=== PATIENT | female | born 1975 | race Caucasian/White ===

== ENCOUNTER 2017-05-16 13:41 | Emergency (ER) | payer BC ==
[2017-05-16] MEDS ORDERED: Sodium Chloride 0.9% 1,000 ML IV SCH (14:45)
[2017-05-16] MEDS ORDERED: Ketorolac 30 MG/ML SDV IVPUSH ONE (14:46)
[2017-05-16] MEDS ORDERED: Prochlorperazine 10 MG/2 ML SDV IVPUSH ONE (14:46)
[2017-05-16] MEDS ORDERED: diphenhydrAMINE 50 MG/ML SDV IVPUSH ONE (14:47)
--- NOTE | 2017-05-16 16:14 | EDM.PDOC ---
ED HPI GENERAL MEDICAL PROBLEM - General Chief Complaint: Headache Stated Complaint: HEADACHE Time Seen by Provider: 05/16/17 14:00 Source of Information: Reports: Patient History Limitations: Reports: No Limitations - History of Present Illness INITIAL COMMENTS - FREE TEXT/NARRATIVE: pt has been having a problem with a rt shoulder area and she now has a headache. She is not prone to hesdaches that are not relieved by Ibuprofen. She has very little vision in the rt eye due to a detached retina. She has a history of chronic nystagmus. Onset: Today, Gradual Duration: Hour(s):, Getting Worse Location: Reports: Head Associated Symptoms: Reports: No Other Symptoms Headache Pain Score (Numeric/FACES): 9 - Related Data Allergies Allergy/AdvReac Type Severity Reaction Status Date / Time No Known Allergies Allergy Verified 10/18/16 09:39 Home Meds: Home Meds Levalbuterol HCl [Xopenex] 0.63 mg IH ASDIRECTED PRN 05/16/17 [History] Levalbuterol Tartrate [Xopenex HFA] 2 puff IH ASDIRECTED PRN 05/16/17 [History] Montelukast [Singulair] 10 mg PO ONETIME 05/16/17 [History] lamoTRIgine [Lamictal] 200 mg PO DAILY 05/16/17 [History] risperiDONE [risperiDONE] 1.5 mg PO DAILY 05/16/17 [History] Past Medical History HEENT History: Reports: Impaired Vision Other HEENT History: left eye Respiratory History: Reports: Asthma CIT[employer]X ARCHITECT History: Reports: Endometriosis Musculoskeletal History: Reports: Other (See Below) Other Musculoskeletal History: right shoulder problem. pain left side of neck Psychiatric History: Reports: Bipolar Social & Family History - Tobacco Use Smoking Status *Q: Never Smoker - Caffeine Use Caffeine Use: Reports: Coffee - Recreational Drug Use Recreational Drug Use: No ED ROS GENERAL - Review of Systems Review Of Systems: See Below Constitutional: Reports: No Symptoms HEENT: Reports: Other (no new symptoms. ) Respiratory: Reports: No Symptoms Cardiovascular: Reports: No Symptoms Endocrine: Reports: No Symptoms GI/Abdominal: Reports: No Symptoms : Reports: No Symptoms Musculoskeletal: Reports: No Symptoms Neurological: Reports: Headache, Other (pt has neck tightness) Psychiatric: Reports: No Symptoms - Physical Exam Exam: See Below Text/Narrative:: Pt arrived with a headache accross the entire head. He has sinus infections in the past but she does not have symptoms of that. 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 ) Back Exam: Normal Inspection Extremities: Normal Inspection Psychiatric: Normal Affect Course - Vital Signs Last Recorded V/S: Last Vital Signs Temp 36.6 C 05/16/17 13:58 Pulse 80 05/16/17 18:16 Resp 16 05/16/17 18:16 BP 118/75 05/16/17 18:16 Pulse Ox 97 05/16/17 18:16 - Orders/Labs/Meds Orders: Active Orders 24 hr Category Date Time Status Cervical Spine Min 4V [CR] Stat Exams 05/16/17 17:31 Taken Head wo Cont [CT] Stat Exams 05/16/17 14:47 Taken Labs: Laboratory Tests 05/16/17 05/16/17 05/16/17 Range/Units 14:58 14:58 15:42 WBC 4.5 (4.5-11.0) K/uL RBC 4.44 (3.30-5.50) M/uL Hgb 14.1 (12.0-15.0) g/dL Hct 41.7 (36.0-48.0) % MCV 94 (80-98) fL MCH 32 H (27-31) pg MCHC 34 (32-36) % Plt Count 316 (150-400) K/uL Neut % (Auto) 56 (36-66) % Lymph % (Auto) 33 (24-44) % [place] % (Auto) 9 H (2-6) % Eos % (Auto) 1 L (2-4) % Baso % (Auto) 0 (0-1) % Sodium 140 (140-148) mmol/L Potassium 3.6 (3.6-5.2) mmol/L Chloride 102 (100-108) mmol/L Carbon Dioxide 31 (21-32) mmol/L Anion Gap 6.9 (5.0-14.0) mmol/L BUN 11 (7-18) mg/dL Creatinine 0.8 (0.6-1.0) mg/dL Est Cr Clr Drug Dosing 80.72 mL/min Estimated GFR (MDRD) > 60 (>60) Glucose 136 H (74-106) mg/dL Calcium 9.2 (8.5-10.1) mg/dL Total Bilirubin 0.5 (0.2-1.0) mg/dL AST 15 (15-37) U/L ALT 25 (12-78) U/L Alkaline Phosphatase 48 (46-116) U/L Total Protein 7.9 (6.4-8.2) g/dL Albumin 4.5 (3.4-5.0) g/dL Globulin 3.4 (2.3-3.5) g/dL Albumin/Globulin Ratio 1.3 (1.2-2.2) Urine Color Yellow Urine Appearance Cloudy Urine pH 5.0 (4.5-8.0) Ur Specific [place] 1.010 (1.008-1.030) Urine Protein Negative (NEGATIVE) mg/dL Urine Glucose (UA) Normal (NEGATIVE) mg/dL Urine Ketones Negative (NEGATIVE) mg/dL Urine Occult Blood Negative (NEGATIVE) Urine Nitrite Negative (NEGATIVE) Urine Bilirubin Negative (NEGATIVE) Urine Urobilinogen Normal (NORMAL) mg/dL Ur Leukocyte Esterase Negative (NEGATIVE) Urine RBC 0-5 (0-5) Urine WBC 0-5 (0-5) Ur Epithelial Cells Few Amorphous Sediment Not seen Urine Bacteria Moderate Urine Mucus Not seen Meds: Medications Discontinued Medications Generic Name Dose Route Start Last Admin Trade Name Freq PRN Reason Stop Dose Admin Diphenhydramine HCl 25 mg 05/16/17 14:47 05/16/17 15:53 Benadryl IVPUSH 05/16/17 14:48 25 mg ONETIME ONE Administration Hydromorphone HCl 0.5 mg 05/16/17 16:59 05/16/17 17:11 Dilaudid IVPUSH 05/16/17 17:00 0.5 mg ONETIME ONE Administration Hydromorphone HCl 0.5 mg 05/16/17 17:32 05/16/17 17:52 Dilaudid IVPUSH 05/16/17 17:33 0.5 mg ONETIME ONE Administration Sodium Chloride 1,000 mls @ 999 mls/hr 05/16/17 14:45 05/16/17 15:52 Normal Saline IV 999 mls/hr ASDIRECTED PAMELA Administration Ketorolac Tromethamine 30 mg 05/16/17 14:46 05/16/17 15:59 Toradol IVPUSH 05/16/17 14:47 30 mg ONETIME ONE Administration Metaxalone 800 mg 05/16/17 17:42 05/16/17 18:15 Skelaxin PO 05/16/17 17:43 800 mg ONETIME ONE Administration Prochlorperazine Edisylate 10 mg 05/16/17 14:46 05/16/17 15:56 Compazine IVPUSH 05/16/17 14:47 10 mg ONETIME ONE Administration - Re-Assessments/Exams Free Text/Narrative Re-Assessment/Exam: 05/16/17 16:19 cat scan of the head showed enlargement of the atrium and occipital horn of the left ventricle. This may be chronic 05/16/17 17:42 PT DID HAVE TIGHTNESS IN THE POST CERVICAL AREA. a CERVICAL SPINE SERIES WAS OBTAINE. sHE WAS GIVEN SKELAIN 800MG. 05/17/17 07:21 cervical spine series looked good with good interspaces Departure - Departure Time of Disposition: 17:45 Disposition: Home, Self-Care 01 Condition: Fair Clinical Impression: Headache, Cervical paraspinal muscle spasm - Discharge Information Instructions: Muscle Cramps and Spasms, Tension Headache Referrals: Jerri Patel NP [Primary Care Provider] - Forms: ED Department Discharge Care Plan Goals: sEE REGULAR PROVIDER AND POSSIBLY HAVE A mRI BECAUSE OF THE VENTRICULAR CHANGES ON THE CAT SCAN OF THE HEAD. , MOIST WARM PACKS TO THE POST CERVICAL AREA. SKELAIMN 400MG BID TO RELAX MUSCLES, - My Orders Last 24 Hours: My Active Orders 05/16/17 14:47 Head wo Cont [CT] Stat 05/16/17 17:31 Cervical Spine Min 4V [CR] Stat - Assessment/Plan Last 24 Hours: My Active Orders 05/16/17 14:47 Head wo Cont [CT] Stat 05/16/17 17:31 Cervical Spine Min 4V [CR] Stat
[2017-05-16] MEDS ORDERED: HYDROmorphone 0.5 MG/0.5 ML Syringe IVPUSH ONE ×2 (16:59→17:32)
[2017-05-16 18:17] VITALS: BP 118/75
--- NOTE | 2017-05-17 08:54 | CR ---
Cervical Spine Min 4V HISTORY: PAIN IN RT POST CERVICAL AREA. FINDINGS: Vertebral body alignment is satisfactory. No compression fracture is seen. There is mild disc space a nd a small anterior and posterior osteophytes at C5-6 and C6-7. Spinous processes, posterior elements , and facet joints appear intact and in satisfactory alignment. Mild facet arthropathy can be seen. U ncinate process spurring projects mildly into the left exiting nerve root foramina at C5-6. No odonto id abnormality can be seen. Prevertebral soft tissues appear normal. IMPRESSION: Degenerative and spondylotic changes C5-6 and C6-7. Scattered mild facet arthropathy. No acute cervic al spine abnormality is identified.
== END 2017-05-16 19:08 | disposition home or self-care (01) ==
LOC: JP.ED 13:41
DX: R51 Headache (principal); M62.838 Other muscle spasm; J45.909 Unspecified asthma, uncomplicated; Z79.899 Other long term (current) drug therapy
CPT/HCPCS: 36415; 70450; 72050; 80053; 81001; 85025; 96361; 96374; 96375; 99285; A9270; J0780; J1170; J1200; J1885; J7040

== ENCOUNTER 2017-05-21 16:17 | Emergency (ER) | payer BC ==
[2017-05-21] MEDS ORDERED: HYDROmorphone 1 MG/ML Syringe IM ONE (16:51)
[2017-05-21] MEDS ORDERED: Ondansetron 4 MG Tab.DIS PO ONE (16:51)
--- NOTE | 2017-05-21 16:55 | EDM.PDOC ---
<OfficerScotty - Last Filed: 05/21/17 18:13> ED HPI GENERAL MEDICAL PROBLEM - General Chief Complaint: Headache Stated Complaint: HEADACHE Time Seen by Provider: 05/21/17 16:32 Source of Information: Reports: Patient, Family, Old Records, RN Notes Reviewed History Limitations: Reports: No Limitations - History of Present Illness INITIAL COMMENTS - FREE TEXT/NARRATIVE: 41-year-old female presents emergency department day complaint of headache, she was in May 16 for an evaluation of headache which time she had an extensive evaluation blood work was unremarkable however the CAT scan did show mild enlargement of the left occipital horn of the lateral ventricle this appears to be chronic she also has detached retina and 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, she does have a scheduled appointment for an MRI in 2 days her biggest issue today is pain control she has been using combination Tylenol and nonsteroidal anti-inflammatory with minimal relief plus Skelaxin for ongoing neck pain also had CT scan of the neck which shows no acute process - Related Data Allergies Allergy/AdvReac Type Severity Reaction Status Date / Time No Known Allergies Allergy Verified 05/21/17 16:27 Home Meds: Home Meds Levalbuterol HCl [Xopenex] 0.63 mg IH ASDIRECTED PRN 05/16/17 [History] Levalbuterol Tartrate [Xopenex HFA] 2 puff IH ASDIRECTED PRN 05/16/17 [History] Montelukast [Singulair] 10 mg PO ONETIME 05/16/17 [History] lamoTRIgine [Lamictal] 200 mg PO DAILY 05/16/17 [History] risperiDONE [risperiDONE] 1.5 mg PO DAILY 05/16/17 [History] Metaxalone [Metaxalone] 0.5 tab PO BID 05/21/17 [History] Past Medical History HEENT History: Reports: Impaired Vision (Detached retina right eye with chronic nystagmus) Other HEENT History: left eye Respiratory History: Reports: Asthma 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 pain left side of neck Psychiatric History: Reports: Bipolar Social & Family History - Tobacco Use Smoking Status *Q: Never Smoker - Caffeine Use Caffeine Use: Reports: Coffee - Recreational Drug Use Recreational Drug Use: No ED ROS GENERAL - Review of Systems Review Of Systems: See Below Constitutional: Reports: No Symptoms HEENT: Reports: Eye Pain Respiratory: Reports: No Symptoms Cardiovascular: Reports: No Symptoms GI/Abdominal: Reports: No Symptoms. Denies: Nausea : Reports: No Symptoms Musculoskeletal: Reports: No Symptoms Neurological: Reports: Headache ED EXAM, NEURO - Physical Exam Exam: See Below Exam Limited By: No Limitations General Appearance: Alert, WD/WN, No Apparent Distress Eye Exam: Right Eye: Abnormal Pupil, Nystagmus, Left Eye: Normal Inspection Respiratory/Chest: No Respiratory Distress, Lungs Clear, Normal Breath Sounds, No Accessory Muscle Use Cardiovascular: Regular Rate, Rhythm, No Murmur Course - Vital Signs Last Recorded V/S: Last Vital Signs Temp 37.3 C 05/21/17 16:34 Pulse 92 05/21/17 16:34 Resp 14 05/21/17 16:34 BP 135/80 05/21/17 16:34 Pulse Ox 98 05/21/17 16:34 - Orders/Labs/Meds Orders: Active Orders 24 hr Category Date Time Status Peripheral IV Care [RC] . DIRECTED Care 05/21/17 17:36 Active Sodium Chloride 0.9% [Normal Saline] 1,000 ml Med 05/21/17 17:45 Active IV ASDIRECTED Sodium Chloride 0.9% [Saline Flush] Med 05/21/17 17:35 Active 10 ml FLUSH ASDIRECTED PRN Peripheral IV Insertion Adult [OM.PC] Urgent Oth 05/21/17 17:35 Ordered Medication Orders Sodium Chloride (Normal Saline) 1,000 mls @ 500 mls/hr IV ASDIRECTED PAMELA Last Admin: 05/21/17 17:59 Dose: 500 mls/hr Sodium Chloride (Saline Flush) 10 ml FLUSH ASDIRECTED PRN PRN Reason: Keep Vein Open Last Admin: 05/21/17 18:06 Dose: 10 ml Meds: Medications Generic Name Dose Route Start Last Admin Trade Name Freq PRN Reason Stop Dose Admin Sodium Chloride 1,000 mls @ 500 mls/hr 05/21/17 17:45 05/21/17 17:59 Normal Saline IV 500 mls/hr ASDIRECTED PAMELA Administration Sodium Chloride 10 ml 05/21/17 17:35 05/21/17 18:06 Saline Flush FLUSH 10 ml ASDIRECTED PRN Administration Keep Vein Open Discontinued Medications Generic Name Dose Route Start Last Admin Trade Name Darshan PRN Reason Stop Dose Admin Diphenhydramine HCl 25 mg 05/21/17 17:35 05/21/17 18:05 Benadryl IVPUSH 05/21/17 17:36 25 mg ONETIME ONE Administration Haloperidol Lactate 2.5 mg 05/21/17 17:35 05/21/17 18:05 Haldol IVPUSH 05/21/17 17:36 2.5 mg ONETIME ONE Administration Hydromorphone HCl 1 mg 05/21/17 16:51 05/21/17 17:10 Dilaudid IM 05/21/17 16:52 1 mg ONETIME ONE Administration Ketorolac Tromethamine 30 mg 05/21/17 19:07 05/21/17 19:29 Toradol IVPUSH 05/21/17 19:08 30 mg ONETIME ONE Administration Ondansetron HCl 4 mg 05/21/17 16:51 05/21/17 17:10 Zofran Odt PO 05/21/17 16:52 4 mg ONETIME ONE Administration Departure - Departure Disposition: Home, Self-Care 01 Condition: Good Clinical Impression: Headache Qualifiers: Headache type: unspecified Headache chronicity pattern: acute headache Intractability: not intractable Qualified Code(s): R51 - Headache - Discharge Information Referrals: Jerri Patel NP [Primary Care Provider] - Forms: ED Department Discharge Additional Instructions: Please keep your follow-up appointment for your MRI on Monday, a return to the emergency department worsening of symptoms Care Plan Goals: rest encourage fluids, kep appt for the Mri. Torodol 10mg q6h as needed for the headache. rtc if increased problems. - Assessment/Plan Plan: Assessment Acuity = acute Site and laterality = headache complicated in a patient with questionable history of congenital abnormality with mildly enlarged occipital horn left side also right retinal detachment congenital with chronic nystagmus Etiology = unclear etiology consider migraine Manifestations = none Location of injury = Home Lab values = none Plan She was given 1 mg Dilaudid, 4 mg of Zofran, 2.5 mg Haldol, 25 mg Benadryl and 1 L fluid she had good improvement with her headache plan is for her to be discharged home she does have a follow-up appointment on Monday of this coming week for an MRI and then follow-up with her primary care Patient was in agreement with the plan all questions were answered, they were instructed to return to the emergency department or call for worsening symptoms. This note was dictated using [employer] voice recognition software please call with any questions. <Kiana Rivas - Last Filed: 05/21/17 20:05> Course - Re-Assessments/Exams Free Text/Narrative Re-Assessment/Exam: 05/21/17 20:02 pt is at a level of a 3-4 at this time. She was given torodol 30mg iv. Sh had good response from the torodol. She is scheduled for a MRI on monday. Departure - Departure Time of Disposition: 20:04 Condition: Fair
[2017-05-21] MEDS ORDERED: diphenhydrAMINE 50 MG/ML SDV IVPUSH ONE (17:35)
[2017-05-21] MEDS ORDERED: Sodium Chloride 0.9% 10 ML Syringe FLUSH PRN (17:35)
[2017-05-21] MEDS ORDERED: Haloperidol Lactate 5 MG/ML SDV IVPUSH ONE (17:35)
[2017-05-21] MEDS ORDERED: Sodium Chloride 0.9% 1,000 ML IV SCH (17:45)
[2017-05-21] MEDS ORDERED: Ketorolac 30 MG/ML SDV IVPUSH ONE (19:07)
[2017-05-21 20:02] VITALS: BP 122/76
== END 2017-05-21 20:18 | disposition home or self-care (01) ==
LOC: JP.ED 16:17
DX: R51 Headache (principal); J45.909 Unspecified asthma, uncomplicated; F32.9 Major depressive disorder, single episode, unspecified; Z79.899 Other long term (current) drug therapy
CPT/HCPCS: 96361; 96372; 96374; 96375; 99284; A9270; J1170; J1200; J1630; J1885; J7040; J7050

== ENCOUNTER 2017-10-30 17:08 | Emergency (ER) | payer OTHER ==
[2017-10-30 17:28] VITALS: BP 130/73
[2017-10-30] MEDS ORDERED: SUMAtriptan 6 MG/0.5 ML SDV SUBCUT ONE (17:33)
[2017-10-30] MEDS ORDERED: Lactated Ringers 1,000 ML IV ONE (17:40)
[2017-10-30] MEDS ORDERED: Prochlorperazine 10 MG/2 ML SDV IVPUSH ONE (17:41)
[2017-10-30] MEDS ORDERED: Ketorolac 30 MG/ML SDV IVPUSH ONE (17:41)
[2017-10-30] MEDS ORDERED: diphenhydrAMINE 50 MG/ML SDV IVPUSH ONE (17:41)
--- NOTE | 2017-10-30 17:51 | EDM.PDOC ---
<Rd Yusuf G - Last Filed: 10/30/17 17:45> ED HPI GENERAL MEDICAL PROBLEM - General Chief Complaint: Headache Stated Complaint: MIGRAINE Time Seen by Provider: 10/30/17 17:35 Source of Information: Reports: Patient, Old Records, RN History Limitations: Reports: No Limitations - History of Present Illness INITIAL COMMENTS - FREE TEXT/NARRATIVE: 42 yo female with a pHx of migraine NICHOLS presents with another. She last had bad migraines that she could not control in . She had head CT and MRI's in May that did not show anything new or serious. She had a neurology consult this morning and happened to have a migraine while there. They tx'd her with IM promethazine, Toradol, and diphenhydramine with transient reduction, but not elimination of her NICHOLS. She has not had any new or different neurological changes. No fever, no recent head injury. This NICHOLS is like others she has had, but a little worse. 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, Other (see below) (promethazine) - Related Data Allergies Allergy/AdvReac Type Severity Reaction Status Date / Time No Known Allergies Allergy Verified 05/21/17 16:27 Home Meds: Home Meds Levalbuterol HCl [Xopenex] 0.63 mg IH ASDIRECTED PRN 05/16/17 [History] Levalbuterol Tartrate [Xopenex HFA] 2 puff IH ASDIRECTED PRN 05/16/17 [History] Montelukast [Singulair] 10 mg PO ONETIME 05/16/17 [History] lamoTRIgine [Lamictal] 200 mg PO DAILY 05/16/17 [History] risperiDONE [risperiDONE] 1.5 mg PO DAILY 05/16/17 [History] Diclofenac Sodium [Voltaren] 50 mg PO DAILY PRN 10/30/17 [History] Rizatriptan Benzoate [Rizatriptan] 10 mg PO ASDIRECTED PRN 10/30/17 [History] Past Medical History HEENT History: Reports: Impaired Vision Other HEENT History: left eye Respiratory History: Reports: Asthma 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 pain left side of neck Neurological History: Reports: Migraines Psychiatric History: Reports: Bipolar Social & Family History - Tobacco Use Smoking Status *Q: Never Smoker - Caffeine Use Caffeine Use: Reports: Coffee - Recreational Drug Use Recreational Drug Use: No ED ROS GENERAL - Review of Systems Review Of Systems: See Below Constitutional: Reports: No Symptoms HEENT: Reports: Other (mild photophobia) Respiratory: Reports: No Symptoms Cardiovascular: Reports: No Symptoms Endocrine: Reports: No Symptoms GI/Abdominal: Reports: No Symptoms : Reports: No Symptoms Musculoskeletal: Reports: No Symptoms Skin: Reports: No Symptoms Neurological: Reports: Headache Psychiatric: Reports: No Symptoms - Physical Exam Exam: See Below Exam Limited By: No Limitations General Appearance: Alert, WD/WN, No Apparent Distress Eye Exam: Bilateral Eye: Normal Inspection (chronic nystagmus R eye) Ears: Normal External Exam, Normal Canal, Hearing Grossly Normal, Normal TMs Nose: Normal Inspection, Normal Mucosa, No Blood Throat/Mouth: Normal Inspection, Normal Lips, Normal Teeth, Normal Oropharynx, Normal Voice, No Airway Compromise Head Exam: Atraumatic, Normocephalic Neck: Normal Inspection, Supple Respiratory/Chest: No Respiratory Distress, Lungs Clear, Normal Breath Sounds, No Accessory Muscle Use Cardiovascular: Regular Rate, Rhythm, No Edema GI/Abdominal: Normal Bowel Sounds, Soft, Non-Tender, No Distention Neuro Exam (Abbreviated): Alert, Oriented, CN II-XII Intact, Normal Cognition, No Motor/Sensory Deficits Back Exam: Normal Inspection Extremities: Normal Inspection, Normal Range of Motion, Non-Tender, No Pedal Edema Psychiatric: Normal Affect, Normal Mood Skin Exam: Warm, Dry, Intact, Normal Color, No Rash Course - Vital Signs Last Recorded V/S: Last Vital Signs Temp 97.7 F 10/30/17 17:27 Pulse 87 10/30/17 17:27 Resp 16 10/30/17 17:27 BP 130/73 10/30/17 17:27 Pulse Ox 99 10/30/17 17:27 - Orders/Labs/Meds Meds: Medications Discontinued Medications Generic Name Dose Route Start Last Admin Trade Name Freq PRN Reason Stop Dose Admin Diphenhydramine HCl 25 mg 10/30/17 17:41 10/30/17 17:56 Benadryl IVPUSH 10/30/17 17:42 25 mg ONETIME ONE Administration Lactated Ringer's 1,000 mls @ 1,000 mls/hr 10/30/17 17:40 10/30/17 17:53 Ringers, Lactated IV 10/30/17 18:39 1,000 mls/hr BOLUS ONE Administration Ketorolac Tromethamine 30 mg 10/30/17 17:41 10/30/17 17:54 Toradol IVPUSH 10/30/17 17:42 30 mg ONETIME ONE Administration Methylprednisolone Sodium Succinate 62.5 mg 10/30/17 19:15 10/30/17 19:21 Solu-Medrol IVPUSH 10/30/17 19:16 62.5 mg ONETIME ONE Administration Prochlorperazine Edisylate 10 mg 10/30/17 17:41 10/30/17 17:58 Compazine IVPUSH 10/30/17 17:42 10 mg ONETIME ONE Administration Sumatriptan Succinate 6 mg 10/30/17 17:33 10/30/17 18:05 Imitrex SUBCUT 10/30/17 17:34 Not Given ONETIME ONE Departure - Departure Disposition: Home, Self-Care 01 Clinical Impression: Migraine - Discharge Information Instructions: Recurrent Migraine Headache, [id number] Referrals: Jazmine Mathew CNM [Primary Care Provider] - Forms: ED Department Discharge Care Plan Goals: Rest tonight and continue your medications as recommended. Return as needed if worsening or concerns. <Too Looney - Last Filed: 10/30/17 19:52> Course - Re-Assessments/Exams Free Text/Narrative Re-Assessment/Exam: 10/30/17 19:[address] Yusuf decreased the headache to a "3". She was given 62.5 mg of IV Solu-Medrol IV then discharged with instructions to return if worsening. Departure - Departure Time of Disposition: 19:45 Condition: Fair
[2017-10-30] MEDS ORDERED: methylPREDNISolone Sodium Succinate 125 MG/2 ML SDV IVPUSH ONE (19:15)
== END 2017-10-30 19:35 | disposition home or self-care (01) ==
LOC: JP.ED 17:08
DX: G43.909 Migraine, unspecified, not intractable, without status migrainosus (principal); J45.909 Unspecified asthma, uncomplicated; Z79.899 Other long term (current) drug therapy
CPT/HCPCS: 96361; 96374; 96375; 99283; J0780; J1200; J1885; J2930; J7120